=== PATIENT | male | born 1980 | race Hispanic/Latino ===

== ENCOUNTER 2021-11-16 11:58 | Inpatient (IN) | payer OTHER ==
[2021-11-16 14:13] VITALS: BMI 25.8
[2021-11-16 16:28] VITALS: BP 127/82; TEMP 98
[2021-11-16] MEDS ORDERED: traMADol HCl 50 MG TAB PO PRN (16:30)
[2021-11-16] MEDS ORDERED: Ondansetron PF 4 MG/2 ML Vial IVP PRN (16:31)
[2021-11-16] MEDS ORDERED: Promethazine HCl 25 MG/ML VIAL IM PRN (16:31)
[2021-11-16] MEDS ORDERED: Acetaminophen 500 MG TAB PO SCH (17:00)
[2021-11-16] MEDS ORDERED: traMADol HCl 50 MG TAB PO SCH (18:00)
[2021-11-16] MEDS ORDERED: Senokot S 8.6-50 MG TAB PO SCH (21:00)
[2021-11-16] MEDS ORDERED: Famotidine 20 MG TAB PO SCH (21:00)
[2021-11-17] MEDS ORDERED: Polyethylene Glycol 3350 17 GM Packet PO SCH (09:00)
== END 2021-11-16 18:50 | disposition left against medical advice (07) | DRG 816 ==
LOC: SURG A 13:15
PROVIDERS: ADMIT Surgery; ATTEND Surgery
DX: S36.039A Unspecified laceration of spleen, initial encounter (principal); V49.88XA Car occupant (driver) (passenger) injured in other specified transport accidents, initial encounter; R10.9 Unspecified abdominal pain